=== PATIENT | female | born 1970 | race Caucasian/White ===

== ENCOUNTER 2017-02-11 04:10 | Emergency (ER) | payer MEDICAID ==
[2011-02-28 06:31] VITALS: BMI 21.7
== END 2017-02-11 07:13 | disposition other institution (70) ==
LOC: D.ER 04:10
DX: S32.019A Unspecified fracture of first lumbar vertebra, initial encounter for closed fracture (principal); V49.9XXA Car occupant (driver) (passenger) injured in unspecified traffic accident, initial encounter; Y93.89 Activity, other specified; Y92.410 Unspecified street and highway as the place of occurrence of the external cause; E03.9 Hypothyroidism, unspecified; K58.9 Irritable bowel syndrome, unspecified; M32.9 Systemic lupus erythematosus, unspecified; F17.200 Nicotine dependence, unspecified, uncomplicated

== ENCOUNTER 2019-01-05 08:28 | Day surgery (SDC) | payer BC ==
[2019-01-01 11:59] LABS: BASOPHILS 0.4 % (0-2); EOSINOPHILS 1.7 % (0-7); HEMATOCRIT 38.1 % (36.0-48.0); IMMATURE GRANULOCYTES 0.2 % (0-5); LYMPHOCYTES 34.2 % (15-50); MCH 28.4 pg (26.0-34.0); MCHC 34.1 g/dL (31.0-37.0); MCV 83.2 fL (80.0-100.0); MEAN PLATELET VOLUME 8.8 fL (7.4-10.4); MONOCYTES 9.7 % (2-11); NEUTROPHILS 53.8 % (40-80); PLATELET COUNT 233 10x3/uL (130-400); RBC 4.58 10x6/uL (4.00-5.40); RDW 13.3 % (11.5-14.5); WBC 5.4 10x3/uL (4.8-10.8)
[~2019-01-05] VITALS: Ht 154.9 cm; Wt 64.4 kg
[~2019-01-05 08:28] MED LIST: ADVIL200 MG; BAYER CHEWABLE81 MG PO; CYCLOBENZAPRINE10 MG; HYDROCODONE-A1 UDTA2; PROPRANOLOL HCL20 MG; SYNTHROID112 MCG PO; VITAMIN D250000 UNIT; VITAMIN D5000 UNIT PO
[2019-01-05] MEDS ORDERED: CYTOTEC100 MCG PO (08:48)
[2019-01-05 08:50] VITALS: BP 105/78; Ht 154.9 cm; Wt 64.4 kg
[2019-01-05 09:01] LABS: HCG URINE NEGATIVE (NEGATIVE)
--- NOTE | 2019-01-05 15:09 | NUR ---
PT DC INSTRUCTIONS REVIEWED AT THIS TIME, PT VERBALIZES UNDERSTANDING. PT IV REMOVED AT THIS TIME, NO REDNESS OR SWELLING NOTED AT SITE.
--- NOTE | 2019-01-05 15:20 | NUR ---
PT LEAVING OPS AT THIS TIME VIA WC, NAD NOTED.
--- NOTE | 2019-01-06 08:05 | OP ---
PATIENT NAME: PEDRO VICENTE MEDICAL RECORD: [id number] :66 LOCATION:D[facility] ADMISSION DATE: SURGEON: SY VELARDE MD DATE OF OPERATION: 01/05/2019 PREOPERATIVE DIAGNOSES: 1. Dysfunctional uterine bleeding. 2. Cervical stenosis. POSTOPERATIVE DIAGNOSES: 1. Dysfunctional uterine bleeding. 2. Cervical stenosis. PROCEDURES: 1. Dilation and curettage. 2. Hysteroscopy. 3. Thermal uterine ablation using NovaSure. SURGEON: Sy Velarde MD ANESTHESIOLOGIST: Joo Aguilar MD [employer] SUPERVISOR: Papito Crum ANESTHETIC: General. FINDINGS: Uterus sounds to approximately 8 cm. The patient has a lush endometrium. [place] was visualized. Cervix and vaginal vault unremarkable. Mild to moderate amount of duncan brown tissue returned at the time of D&C. Uterus length 5 cm, width 2.5 cm. SPECIMENS REMOVED: Endometrial curettings. SPECIMEN DISPOSITION: Pathology. ESTIMATED BLOOD LOSS: Minimal. FLUIDS: 800 cc of lactated Ringer's. URINE OUTPUT: Quantity sufficient void prior to this procedure. COMPLICATIONS: None. DRAINS: None. INDICATION: The patient is a 48-year-old female with heavy irregular periods. The patient was unable to have endometrial biopsy obtained due to cervical stenosis. The patient was consented for dilation and curettage followed by uterine ablation. DESCRIPTION OF PROCEDURE: After informed consent was assured, the patient was taken to the operating room, where anesthetic was obtained. The patient was now prepped and draped after being placed in Yellofin stirrups. A speculum was introduced in the vagina. Cervix was grasped with a single-tooth tenaculum and placed on gentle traction. Beginning with the smallest dilator, the cervix was OPERATIVE REPORT [id number] PEDRO VICENTE dilated with Hegar dilators to accommodate a 4-mm hysteroscope. Using normal saline distention media, the uterine cavity was visualized with a lush endometrium and no obvious masses. Cervix was further dilated to accommodate a #1 curettage. Sharp curettage was performed until good cry was obtained throughout. NovaSure device was now opened and assessed. The uterine length was obtained. The length and gauge were set on the NovaSure device and it was inserted. The width of the cavity was now determined to be 2.5 cm. After the proper test sequence was initiated, 1 minute and 28 seconds of therapy concluded. The device was removed from the uterus. The cervix was inspected and found to be hemostatic. The patient was awakened and went to the recovery room in stable condition. TRANSINT:[id number] Voice Confirmation ID: [id number] DOCUMENT ID: [id number] SY VELARDE MD at 0805 CC: [id number] DICTATION DATE: 01/05/19 1314 PAINTING MANAGER: 01/05/19 1336 [facility] 01/05/[address] [id number]
== END 2019-01-05 15:20 | disposition home or self-care (01) ==
LOC: D.OPS 08:28 → D.PAN 10:15 → D.OPS 10:30 → D.PAN 10:35 → D.OPS 15:20
PROVIDERS: ATTEND Obstetrics & Gynecology
DX: N93.8 Other specified abnormal uterine and vaginal bleeding (principal); N88.2 Stricture and stenosis of cervix uteri; Z01.812 Encounter for preprocedural laboratory examination